=== PATIENT | female | born 1945 | race Hispanic/Latino ===

== ENCOUNTER → 2019-09-25 | Outpatient (CLI) | payer OTHER | END | disposition home or self-care (01) | LOC: RAH 13:11 | PROVIDERS: ATTEND Family Medicine | DX: Z12.31 Encounter for screening mammogram for malignant neoplasm of breast (principal) | CPT/HCPCS: 77067 ==

== ENCOUNTER → 2021-05-23 | Outpatient (CLI) | payer OTHER | END | disposition home or self-care (01) | LOC: SHCH 13:37 | PROVIDERS: ATTEND Internal Medicine Cardiovascular Disease | DX: I11.9 Hypertensive heart disease without heart failure (principal); E11.9 Type 2 diabetes mellitus without complications | CPT/HCPCS: 93306 ==

== ENCOUNTER → 2021-05-24 | Outpatient (CLI) | payer OTHER ==
[~2021-05-24] MED LIST: REGADENOSON 0.4 MG/5 ML PF SYG IVP SCH
== END | disposition home or self-care (01) ==
LOC: SHCH 07:55
PROVIDERS: ATTEND Internal Medicine Cardiovascular Disease
DX: R06.02 Shortness of breath (principal); R07.9 Chest pain, unspecified
CPT/HCPCS: 78452; 93017; 96374; A9500 ×2; J2785

== ENCOUNTER → 2022-08-17 | Outpatient (CLI) | payer OTHER | END | disposition home or self-care (01) | LOC: RAH 12:41 | PROVIDERS: ATTEND Internal Medicine Cardiovascular Disease | DX: Z13.6 Encounter for screening for cardiovascular disorders (principal); I51.5 Myocardial degeneration | CPT/HCPCS: 75571 ==

== ENCOUNTER 2023-02-05 05:03 | Observation (INO) | payer OTHER ==
[2023-01-31 12:20] LABS: BASOPHILS # (AUTO) 0.03 K/uL (0.00-0.20); BASOPHILS % (AUTO) 0.5 % (0.0-5.0); EOSINOPHILS # (AUTO) 0.09 K/uL (0.00-0.70); EOSINOPHILS % (AUTO) 1.4 % (0.0-8.0); HEMATOCRIT 38.9 % (36-48); IMMATURE GRANULOCYTE ABSOLUTE 0.02 K/uL (0-1); LYMPHOCYTES # (AUTO) 1.4 K/uL (1.0-4.8); LYMPHOCYTES % (AUTO) 21.2 % (21.0-51.0); MEAN CORPUSCULAR HEMOGLOBIN 30.5 pg (27.0-33.0); MEAN CORPUSCULAR HGB CONC 32.6 g/dL (32.0-36.0); MEAN CORPUSCULAR VOLUME 93.5 fL (79-99); MONOCYTES # (AUTO) 0.5 K/uL (0.1-1.0); MONOCYTES % (AUTO) 7.1 % (3.0-13.0); NEUTROPHILS # (AUTO) 4.5 K/uL (1.8-7.7); NEUTROPHILS % (AUTO) 69.5 % (40.0-77.0); PLATELET COUNT (AUTO) 210 K/uL (130-400); RED BLOOD CELL COUNT(AUTO) 4.16 MIL/uL (4.00-5.50); RED CELL DISTRIBUTION WIDTH 13.9 % (11.0-15.5); WHITE BLOOD COUNT (AUTO) 6.5 K/uL (4.8-10.8)
[2023-01-31 12:31] LABS: INR 0.97 (0.85-1.15); PROTHROMBIN TIME 11.3 SEC (9.6-11.6)
[2023-01-31 12:32] LABS: PARTIAL THROMBOPLASTIN TIME 31.4 SEC (26.3-35.5)
[2023-01-31 12:38] LABS: CREATININE 0.9 mg/dL (0.5-1.5); POTASSIUM 3.8 mmol/L (3.5-5.1)
[2023-01-31 13:45] VITALS: BP 171/90; PULSE 86; RESP 16
[~2023-02-05] VITALS: Ht 154.9 cm; Wt 84.1 kg
[2023-02-05] VITALS (26 sets, daily range): BP systolic 106–160; BP diastolic 53–99; PULSE 56–121; RESP 11–18; O2SAT 96
[~2023-02-05 05:03] MED LIST changes: +GLIM2TAB30 PO; +LATA2.5D14 OU; +LOSA50TA64 PO; +METF-444 PO; +METO-391 PO; -REGADENOSON 0.4 MG/5 ML PF SYG IVP SCH; +ROSU5TAB12 PO
[2023-02-05] MEDS ORDERED: 0.9%NACL 1000ML 1,000 ML IV ONE (05:25)
[2023-02-05] MEDS: CEFAZOLIN SODIUM 2 GM VIAL ONE ×2 (05:49→07:21)
[2023-02-05] MEDS ORDERED: SUCCINYLCHOLINE 200MG/10ML SYR ONE (06:14)
[2023-02-05] MEDS ORDERED: LIDOCAINE PF 100MG/5ML (2%) SYRINGE 5ML ONE (06:14)
[2023-02-05] MEDS ORDERED: MIDAZOLAM HCL 1 MG/ML 2ML VIAL ONE ×2 (06:15→08:10)
[2023-02-05] MEDS ORDERED: PROPOFOL 10 MG/ML 20ML VIAL IV ONE (06:15)
[2023-02-05] MEDS ORDERED: GLYCOPYRROLATE 1 MG/5 ML SYRINGE ONE (06:15)
[2023-02-05] MEDS ORDERED: DEXAMETHASONE SOD PHOSPHATE 10MG/ML 1ML VIAL ONE (06:15)
[2023-02-05] MEDS ORDERED: ONDANSETRON 4MG INJ ONE (06:15)
[2023-02-05] MEDS ORDERED: NEOSTIGMINE 5MG/5ML SYR IV ONE (06:15)
[2023-02-05] MEDS ORDERED: ROCURONIUM 10MG/1ML SYR 10 MG/ML ML ONE (06:15)
[2023-02-05] MEDS ORDERED: FENTANYL CITRATE PF 50 MCG/1 ML 2ML VIAL ONE ×2 (06:16→07:36)
[2023-02-05] MEDS ORDERED: EPINEPHRINE PF 1MG (1:1,000) 1 MG/ML AMP ONE (06:16)
[2023-02-05] MEDS ORDERED: TRANEXAMIC ACID 1000MG/10ML ONE ×2 (06:29→06:57)
[2023-02-05] MEDS ORDERED: GENTAMICIN SULFATE 80 MG/2 ML VIAL ONE (06:30)
[2023-02-05] MEDS ORDERED: CEFAZOLIN SODIUM 1 GM VIAL ONE ×2 (06:30→20:57)
[2023-02-05] MEDS ORDERED: 0.9%NACL 100ML 48.45 ML, ROPIVACAINE 0.5% 5MG/ML 30ML 246.25 MG, KETOROLAC TROMETHAMINE... IV PRN ×5 (07:00)
[2023-02-05] MEDS ORDERED: KCL 20 MEQ ERTAB PO PRN (11:30)
[2023-02-05] MEDS ORDERED: MAGNESIUM 2GM PREMIX 50ML 50 ML IV PRN (11:30)
[2023-02-05] MEDS ORDERED: POTASSIUM CHLORIDE 20MEQ/100ML 100 ML IV PRN (11:30)
[2023-02-05] MEDS ORDERED: POTASSIUM CHLORIDE 10% ELIXIR 20 MEQ/15 ML UDCUP PO PRN (11:30)
[2023-02-05 11:37] LABS: HEMATOCRIT 34.7 % (36-48); MEAN CORPUSCULAR HEMOGLOBIN 30.6 pg (27.0-33.0); MEAN CORPUSCULAR HGB CONC 32.6 g/dL (32.0-36.0); RED BLOOD CELL COUNT(AUTO) 3.69 MIL/uL (4.00-5.50); RED CELL DISTRIBUTION WIDTH 13.9 % (11.0-15.5); WHITE BLOOD COUNT (AUTO) 5.1 K/uL (4.8-10.8)
[2023-02-05 12:00] LABS: ALBUMIN 3.3 g/dL (3.5-5.0); BILIRUBIN,TOTAL 0.3 mg/dL (0.2-1.0); CREATININE 0.8 mg/dL (0.5-1.5); MAGNESIUM 1.1 mg/dL (1.80-2.40); TOTAL PROTEIN, SERUM 6.7 g/dL (6.0-8.3)
[2023-02-05] MEDS ORDERED: DIPHENHYDRAMINE HCL 25 MG CAPSULE PO PRN (13:30)
[2023-02-05] MEDS ORDERED: ACETAMINOPHEN WITH CODEINE 1 TAB TAB PO PRN (13:30)
[2023-02-05] MEDS ORDERED: HYDROCODONE/ACETAMINOPHEN 5/325 MG TAB PO PRN (13:30)
[2023-02-05] MEDS ORDERED: DiphenhydrAMINE HCL 50 MG/ML VIAL IM PRN (13:30)
[2023-02-05] MEDS ORDERED: DIPHENOXYLATE HCL/ATROPINE 2.5/0.025 MG TAB PO PRN (13:30)
[2023-02-05] MEDS ORDERED: ACETAMINOPHEN 325 MG TAB PO PRN ×2 (13:30)
[2023-02-05] MEDS ORDERED: LACTULOSE 20 GM/30 ML UDCUP PO PRN (13:30)
[2023-02-05] MEDS ORDERED: ONDANSETRON 4MG INJ IVP PRN (13:30)
[2023-02-05] MEDS ORDERED: BENZOCAINE/MENTH/CETYLPYRD CL 1 EACH LOZENGE MM PRN (13:30)
[2023-02-05] MEDS: 0.9%NACL 1000ML 1,000 ML IV SCH ×2 (13:30→23:30)
[2023-02-05] MEDS ORDERED: MAG/ALUM/SIMETH 30 ML UDCUP PO PRN (13:30)
[2023-02-05] MEDS ORDERED: HYDROMORPHONE PCA 10 MG/50 ML 50 ML IV PRN (13:30)
[2023-02-05] MEDS: TRAMADOL HCL 50 MG TABLET PO PRN (15:47)
[2023-02-05] MEDS ORDERED: CEFAZOLIN SODIUM 2 GM VIAL IVPB SCH (16:00)
[2023-02-05] MEDS: CEFAZOLIN SODIUM 3 GM in DEXTROSE 5%-WATER 100 ML IVPB SCH ×2 (17:19→21:03)
[2023-02-05] MEDS: METOPROLOL SUCCINATE 50 MG TAB.SR.24H PO SCH (20:35)
[2023-02-05] MEDS: METFORMIN HCL 500 MG TABLET PO SCH (20:36)
[2023-02-05] MEDS: INSULIN HUMULIN R 100 UNIT/ML 3ML SQ SCH (20:49)
[2023-02-05] MEDS ORDERED: CEFAZOLIN SODIUM 2 GM VIAL ONE (20:57)
[2023-02-05] MEDS ORDERED: ATORVASTATIN 10 MG TABLET PO SCH (21:00)
[2023-02-05] MEDS ORDERED: LATANOPROST 2.5 ML DROPS OU SCH (21:00)
[2023-02-06 04:00] VITALS: BP 121/63; PULSE 97; RESP 18
[2023-02-06 05:22] LABS: HEMATOCRIT 30.2 % (36-48); MEAN CORPUSCULAR HEMOGLOBIN 30.8 pg (27.0-33.0); MEAN CORPUSCULAR HGB CONC 33.8 g/dL (32.0-36.0); MEAN CORPUSCULAR VOLUME 91.2 fL (79-99); RED BLOOD CELL COUNT(AUTO) 3.31 MIL/uL (4.00-5.50); RED CELL DISTRIBUTION WIDTH 13.9 % (11.0-15.5); WHITE BLOOD COUNT (AUTO) 9.6 K/uL (4.8-10.8)
[2023-02-06 05:32] LABS: CREATININE 0.9 mg/dL (0.5-1.5); POTASSIUM 3.6 mmol/L (3.5-5.1)
[2023-02-06] MEDS: INSULIN HUMULIN R 100 UNIT/ML 3ML SQ SCH ×3 (07:30→16:30)
[2023-02-06 08:03] VITALS: BP 118/71; PULSE 97; RESP 20
[2023-02-06] MEDS ORDERED: LOSARTAN 50 MG TABLET PO SCH (09:00)
[2023-02-06] MEDS ORDERED: GLIMEPIRIDE 2 MG TABLET PO SCH (09:00)
[2023-02-06] MEDS ORDERED: RIVAROXABAN 10 MG TABLET PO SCH (09:00)
[2023-02-06] MEDS: 0.9%NACL 1000ML 1,000 ML IV SCH (09:30)
[2023-02-06] MEDS: METFORMIN HCL 500 MG TABLET PO SCH (09:51)
[2023-02-06] MEDS: METOPROLOL SUCCINATE 50 MG TAB.SR.24H PO SCH (09:51)
[2023-02-06] MEDS: TRAMADOL HCL 50 MG TABLET PO PRN ×2 (10:02→16:06)
[2023-02-06 10:56] VITALS: BP 124/74; PULSE 96; RESP 16
[2023-02-06 11:20] VITALS: BP 124/74; PULSE 96; RESP 16
[2023-02-06] MEDS ORDERED: RIVA10TA PO (14:36)
[2023-02-06] MEDS ORDERED: LATANOPROST 2.5 ML DROPS OU SCH (21:00)
== END 2023-02-06 18:30 | disposition home health service (06) ==
LOC: DAH 05:03 → 4AH 05:04 → DAH 05:04
PROVIDERS: ADMIT Orthopaedic Surgery; ATTEND Orthopaedic Surgery
DX: M17.12 Unilateral primary osteoarthritis, left knee (principal); M25.562 Pain in left knee; I10 Essential (primary) hypertension; E11.9 Type 2 diabetes mellitus without complications; E66.9 Obesity, unspecified; E78.5 Hyperlipidemia, unspecified; Z68.35 Body mass index [BMI] 35.0-35.9, adult; Z96.652 Presence of left artificial knee joint; Z79.899 Other long term (current) drug therapy; Z98.890 Other specified postprocedural states
CPT/HCPCS: 80048 ×2; 85025; 85610; 85730; 36415 ×3; 87641; 27447; 96365; 96366 ×3; 96368; 83735; 80053; 85027 ×2; 82948 ×5; 97161; 97012; 97116 ×3; 97530 ×6; A6260; J1815; G0378 ×26; G0379; A4510; A4663; J7030 ×3; J7120; A4215 ×2; A4649 ×4; J3010 ×2; J0690 ×5; J3490 ×2; J1170; J0330; J1100; J0171 ×2; J2001; J1580; J2250 ×2; J7060; J2704; J2405; J1885; J2795; J0735; A6223; C1763 ×2; C1776; A5120; A4223; A4222; A4221; A6450; J2710

== ENCOUNTER → 2023-03-16 | Outpatient (CLI) | payer OTHER ==
[~2023-03-16] MED LIST changes: +RIVA10TA PO
[2023-03-16 12:46] LABS: CHOLESTEROL 134 mg/dL (<200); HDL CHOLESTEROL 68 mg/dL (35-85); LDL DIRECT 58 mg/dL (0-99); TRIGLYCERIDES 44 mg/dL (30-200)
== END | disposition home or self-care (01) ==
LOC: LAB 09:24
PROVIDERS: ATTEND Internal Medicine Cardiovascular Disease
DX: E78.2 Mixed hyperlipidemia (principal); I10 Essential (primary) hypertension; Z78.9 Other specified health status
CPT/HCPCS: 36415; 80061

== ENCOUNTER → 2023-07-10 | Outpatient (CLI) | payer OTHER | END | disposition home or self-care (01) | LOC: RAH 07:56 | PROVIDERS: ATTEND Family Medicine | DX: N28.1 Cyst of kidney, acquired (principal); K76.0 Fatty (change of) liver, not elsewhere classified; R11.2 Nausea with vomiting, unspecified; R10.11 Right upper quadrant pain; R10.13 Epigastric pain | CPT/HCPCS: 76700 ==

== ENCOUNTER → 2023-09-11 | Outpatient (CLI) | payer OTHER ==
[2023-09-11 12:22] LABS: ALBUMIN 3.9 g/dL (3.5-5.0); BILIRUBIN,TOTAL 0.6 mg/dL (0.2-1.0); CREATININE 0.8 mg/dL (0.5-1.0); TOTAL PROTEIN, SERUM 7.7 g/dL (6.0-8.3)
== END | disposition home or self-care (01) ==
LOC: LAB 08:10
PROVIDERS: ATTEND Internal Medicine Cardiovascular Disease
DX: E78.5 Hyperlipidemia, unspecified (principal)
CPT/HCPCS: 36415; 80053; 80061

== ENCOUNTER → 2023-11-13 | Outpatient (CLI) | payer OTHER ==
[~2023-11-13] MED LIST changes: +ALPH200C2 PO; +METF-446 PO; +MVI PO; +OMEP20CA12 PO; -ROSU5TAB12 PO; +ROSU5TAB43 PO; +calcium PO
== END | disposition home or self-care (01) ==
LOC: RAH 12:35
PROVIDERS: ATTEND Internal Medicine
DX: Z78.0 Asymptomatic menopausal state (principal)
CPT/HCPCS: 77080

== ENCOUNTER 2023-11-20 06:41 | Day surgery (SDC) | payer OTHER ==
[2023-11-15 10:47] VITALS: BP 147/72; PULSE 74; RESP 18
[2023-11-15 10:55] LABS: BASOPHILS # (AUTO) 0.03 K/uL (0.00-0.20); BASOPHILS % (AUTO) 0.5 % (0.0-5.0); EOSINOPHILS # (AUTO) 0.17 K/uL (0.00-0.70); EOSINOPHILS % (AUTO) 2.6 % (0.0-8.0); HEMATOCRIT 37.2 % (36-48); IMMATURE GRANULOCYTE ABSOLUTE 0.03 K/uL (0-1); LYMPHOCYTES # (AUTO) 1.1 K/uL (1.0-4.8); LYMPHOCYTES % (AUTO) 16.3 % (21.0-51.0); MEAN CORPUSCULAR HEMOGLOBIN 30.7 pg (27.0-33.0); MEAN CORPUSCULAR HGB CONC 32.8 g/dL (32.0-36.0); MEAN CORPUSCULAR VOLUME 93.7 fL (79-99); MONOCYTES # (AUTO) 0.5 K/uL (0.1-1.0); MONOCYTES % (AUTO) 8.1 % (3.0-13.0); NEUTROPHILS # (AUTO) 4.7 K/uL (1.8-7.7); PLATELET COUNT (AUTO) 214 K/uL (130-400); RED BLOOD CELL COUNT(AUTO) 3.97 MIL/uL (4.00-5.50); RED CELL DISTRIBUTION WIDTH 13.4 % (11.0-15.5); WHITE BLOOD COUNT (AUTO) 6.6 K/uL (4.8-10.8)
[2023-11-15 11:06] LABS: ALBUMIN 3.7 g/dL (3.5-5.0); BILIRUBIN,TOTAL 0.4 mg/dL (0.2-1.0); POTASSIUM 4.2 mmol/L (3.5-5.1); TOTAL PROTEIN, SERUM 7.6 g/dL (6.0-8.3)
[2023-11-15 11:19] LABS: INR 1.02 (0.85-1.15)
[2023-11-15 11:21] LABS: PARTIAL THROMBOPLASTIN TIME 29.3 SEC (26.3-35.5)
[2023-11-20] VITALS (16 sets, daily range): BP systolic 138–167; BP diastolic 63–90; PULSE 53–90; RESP 14–18
[~2023-11-20] VITALS: Ht 152.4 cm; Wt 90.9 kg
[~2023-11-20 06:41] MED LIST changes: -GLIM2TAB30 PO; -METF-444 PO; -RIVA10TA PO
[2023-11-20] MEDS ORDERED: IOHEXOL-350 50ML VIAL IV ONE (07:33)
[2023-11-20] MEDS: CEFAZOLIN SODIUM 2 GM VIAL ONE (07:41)
[2023-11-20] MEDS: 0.9%NACL 1000ML 1,000 ML IV ONE (07:41)
[2023-11-20] MEDS ORDERED: ROCURONIUM BROMIDE 10MG/1ML 5ML VL ONE (07:46)
[2023-11-20] MEDS ORDERED: LIDOCAINE PF 100MG/5ML (2%) SYRINGE 5ML ONE (07:46)
[2023-11-20] MEDS ORDERED: FENTANYL CITRATE PF 50 MCG/1 ML 2ML VIAL ONE (07:46)
[2023-11-20] MEDS ORDERED: PROPOFOL 10 MG/ML 20ML VIAL IV ONE (07:46)
[2023-11-20] MEDS ORDERED: FAMOTIDINE 20MG VIAL IV ONE (07:56)
[2023-11-20] MEDS ORDERED: ACETAMINOPHEN 1,000 MG/100 ML VIAL IV ONE (07:56)
[2023-11-20] MEDS ORDERED: ROPIVACAINE 0.5% 5MG/ML 30ML ONE (07:57)
[2023-11-20] MEDS ORDERED: BUPIVACAINE/PF 0.5% 30ML VIAL ONE (08:01)
[2023-11-20] MEDS: CEFAZOLIN SODIUM 2 GM VIAL IVPB ONE (08:33)
[2023-11-20] MEDS ORDERED: DEXAMETHASONE SOD PHOSPHATE 10MG/ML 1ML VIAL ONE (08:39)
[2023-11-20] MEDS ORDERED: ONDANSETRON 4MG INJ ONE (08:39)
[2023-11-20] MEDS ORDERED: NEOSTIGMINE METHYLSULFATE 1MG/ML IV ONE (08:45)
[2023-11-20] MEDS ORDERED: GLYCOPYRROLATE 0.2 MG/ML 5 ML VIAL ONE (08:45)
[2023-11-20] MEDS ORDERED: EPHEDRINE SULFATE 50 MG/ML AMPULE ONE (08:47)
[2023-11-20] MEDS ORDERED: GABA-529 PO (09:16)
[2023-11-20] MEDS ORDERED: TRAM50TA4 PO (09:16)
[2023-11-20] MEDS ORDERED: DOCU-116 PO (09:16)
[2023-11-20] MEDS ORDERED: METH-662 PO (09:16)
[2023-11-20] MEDS ORDERED: SUGAMMADEX SODIUM 200 MG/2 ML VIAL IV ONE (09:27)
== END 2023-11-20 11:05 | disposition home or self-care (01) ==
LOC: DAH 06:41
PROVIDERS: ATTEND Surgery
DX: K80.10 Calculus of gallbladder with chronic cholecystitis without obstruction (principal); K82.8 Other specified diseases of gallbladder; I10 Essential (primary) hypertension; E11.9 Type 2 diabetes mellitus without complications; E78.5 Hyperlipidemia, unspecified; M19.90 Unspecified osteoarthritis, unspecified site; Z90.49 Acquired absence of other specified parts of digestive tract; Z98.890 Other specified postprocedural states; Z79.01 Long term (current) use of anticoagulants; Z79.899 Other long term (current) drug therapy
CPT/HCPCS: 80061; 80053; 85025; 85610; 85730; 86850 ×2; 86900 ×2; 86901 ×2; 36415 ×2; 64488; 47563; 82948 ×2; 88304; 74300; A6260; A4600; A4663; J7030 ×2; A4215 ×2; C1758; J3490 ×4; J3010; J1100; J2001; J2704; J2405; J2710; J0665; J2795; Q9967; J0690 ×2; G0168; A4649 ×2; A4930; A4223; A4222; A4221

== ENCOUNTER 2023-11-24 13:21 | Emergency (ER) | payer OTHER ==
[~2023-11-24] VITALS: Ht 152.4 cm; Wt 88.5 kg
[~2023-11-24 13:21] MED LIST changes: +DOCU-116 PO; +GABA-529 PO; +METH-662 PO; +TRAM50TA4 PO
[2023-11-24 13:49] LABS: BASOPHILS # (AUTO) 0.02 K/uL (0.00-0.20); BASOPHILS % (AUTO) 0.3 % (0.0-5.0); EOSINOPHILS # (AUTO) 0.38 K/uL (0.00-0.70); HEMATOCRIT 36.1 % (36-48); IMMATURE GRANULOCYTE ABSOLUTE 0.03 K/uL (0-1); LYMPHOCYTES # (AUTO) 1.1 K/uL (1.0-4.8); LYMPHOCYTES % (AUTO) 14.2 % (21.0-51.0); MEAN CORPUSCULAR HEMOGLOBIN 30.8 pg (27.0-33.0); MEAN CORPUSCULAR HGB CONC 34.1 g/dL (32.0-36.0); MEAN CORPUSCULAR VOLUME 90.5 fL (79-99); MONOCYTES # (AUTO) 0.7 K/uL (0.1-1.0); MONOCYTES % (AUTO) 9.2 % (3.0-13.0); NEUTROPHILS # (AUTO) 5.4 K/uL (1.8-7.7); NEUTROPHILS % (AUTO) 70.9 % (40.0-77.0); PLATELET COUNT (AUTO) 244 K/uL (130-400); RED BLOOD CELL COUNT(AUTO) 3.99 MIL/uL (4.00-5.50); RED CELL DISTRIBUTION WIDTH 12.9 % (11.0-15.5); WHITE BLOOD COUNT (AUTO) 7.6 K/uL (4.8-10.8)
[2023-11-24] MEDS: 0.9% NACL 500ML IV.SOLN 500 ML IV ONE (13:55)
[2023-11-24 14:07] LABS: COVID19 (SARS ANTIGEN RAPID) PRESUMPTIVE NEGATIVE (NEGATIVE); INFLUENZA TYPE A Negative For Type A (NEGATIVE); INFLUENZA TYPE B Negative For Type B (NEGATIVE)
[2023-11-24 14:14] LABS: CREATININE 0.9 mg/dL (0.5-1.0); POTASSIUM 3.7 mmol/L (3.5-5.1)
[2023-11-24 14:19] LABS: ALBUMIN 3.2 g/dL (3.5-5.0); BILIRUBIN,TOTAL 0.6 mg/dL (0.2-1.0); TOTAL PROTEIN, SERUM 7.7 g/dL (6.0-8.3)
[2023-11-24] MEDS ORDERED: IOHEXOL 350 MG/ML 100ML INFUS..BTL IV ONE (14:45)
[2023-11-24 18:07] VITALS: BP 109/63; PULSE 91; RESP 17; O2SAT 98
== END 2023-11-24 18:13 | disposition home or self-care (01) ==
LOC: EDH 13:21
DX: R06.02 Shortness of breath (principal); E11.9 Type 2 diabetes mellitus without complications; E66.01 Morbid (severe) obesity due to excess calories; E78.00 Pure hypercholesterolemia, unspecified; I10 Essential (primary) hypertension; J98.11 Atelectasis; Z79.84 Long term (current) use of oral hypoglycemic drugs; Z20.822 Contact with and (suspected) exposure to COVID-19; Z79.899 Other long term (current) drug therapy; Z90.49 Acquired absence of other specified parts of digestive tract; Z90.710 Acquired absence of both cervix and uterus
CPT/HCPCS: 99291; 71270; 71045; 87426; 84484; 80053; 83690; 85025; 87804 ×2; 36415; 93005; J7040; Q9967

== ENCOUNTER 2023-12-07 17:18 | Observation (INO) | payer OTHER ==
[~2023-12-07] VITALS: Ht 152.4 cm; Wt 88.5 kg
[2023-12-07 18:47] LABS: BASOPHILS # (AUTO) 0.06 K/uL (0.00-0.20); BASOPHILS % (AUTO) 0.6 % (0.0-5.0); EOSINOPHILS # (AUTO) 0.18 K/uL (0.00-0.70); EOSINOPHILS % (AUTO) 1.8 % (0.0-8.0); HEMATOCRIT 38.1 % (36-48); IMMATURE GRANULOCYTE ABSOLUTE 0.05 K/uL (0-1); LYMPHOCYTES # (AUTO) 1.4 K/uL (1.0-4.8); LYMPHOCYTES % (AUTO) 14.4 % (21.0-51.0); MEAN CORPUSCULAR HEMOGLOBIN 30.8 pg (27.0-33.0); MEAN CORPUSCULAR HGB CONC 33.1 g/dL (32.0-36.0); MEAN CORPUSCULAR VOLUME 93.2 fL (79-99); MONOCYTES % (AUTO) 9.6 % (3.0-13.0); NEUTROPHILS # (AUTO) 7.3 K/uL (1.8-7.7); NEUTROPHILS % (AUTO) 73.1 % (40.0-77.0); PLATELET COUNT (AUTO) 395 K/uL (130-400); RED BLOOD CELL COUNT(AUTO) 4.09 MIL/uL (4.00-5.50); RED CELL DISTRIBUTION WIDTH 13.2 % (11.0-15.5); WHITE BLOOD COUNT (AUTO) 9.9 K/uL (4.8-10.8)
[2023-12-07 19:01] LABS: ALBUMIN 3.9 g/dL (3.5-5.0); BILIRUBIN,TOTAL 0.5 mg/dL (0.2-1.0); CREATININE 1.7 mg/dL (0.5-1.0); POTASSIUM 4.8 mmol/L (3.5-5.1); TOTAL PROTEIN, SERUM 8.5 g/dL (6.0-8.3)
[2023-12-07] MEDS: 0.9%NACL 1000ML 1,000 ML IV ONE ×2 (19:39→22:07)
[2023-12-07 21:40] LABS: ADD UA MICROSCOPIC YES; APPEARANCE,URINE CLOUDY (CLEAR); BILIRUBIN,URINE NEGATIVE (NEGATIVE); COLOR,URINE YELLOW (YELLOW); GLUCOSE, URINE (UA) NEGATIVE (NEGATIVE); KETONES,URINE NEGATIVE (NEGATIVE); LEUKOCYTE ESTERASE ,URINE 500 Leu/uL (NEGATIVE); NITRATE,URINE NEGATIVE (NEGATIVE); OCCULT BLOOD,URINE NEGATIVE (NEGATIVE); PH,URINE 5.5 (5.0-8.0); PROTEIN,URINE 30 mg/dL (NEGATIVE); UROBILINOGEN,URINE 0.2 mg/dL (0.2-1.0)
[2023-12-07 21:45] LABS: MUCUS,URINE RARE LPF (None Seen); NON-SQUAMOUS EPITHELIAL CELL 2 /HPF (0-2); SQUAMOUS EPITHELIAL CELL,UR MANY /HPF (0-2); WBC,URINE TNTC /HPF (0-1)
[2023-12-07] MEDS ORDERED: ALBUTEROL 0.083% 2.5 MG/3 ML INH IH PRN (22:30)
[2023-12-07] MEDS ORDERED: HYDROCODONE/ACETAMINOPHEN 5/325 MG TAB PO PRN (22:30)
[2023-12-07] MEDS ORDERED: LABETALOL 20MG SYG IV PRN (22:30)
[2023-12-07] MEDS ORDERED: ONDANSETRON 4MG INJ IVP PRN (22:30)
[2023-12-07] MEDS ORDERED: acetaMINOPHEN 325 MG TAB PO PRN (22:30)
[2023-12-07] MEDS ORDERED: hydrALAZine 20MG/ML VIAL IV PRN (22:30)
[2023-12-07] MEDS ORDERED: acetaMINOPHEN 650 MG SUPPOSITORY RC PRN (22:30)
[2023-12-07] MEDS: cefTRIAXone 1G VIAL IVPB SCH (22:58)
[2023-12-07] MEDS: LACTATED RINGERS 1000ML 1,000 ML IV SCH (23:02)
[2023-12-08 02:35] VITALS: BP 123/59; PULSE 69; RESP 20
[2023-12-08 06:24] LABS: BASOPHILS # (AUTO) 0.03 K/uL (0.00-0.20); BASOPHILS % (AUTO) 0.4 % (0.0-5.0); EOSINOPHILS # (AUTO) 0.21 K/uL (0.00-0.70); EOSINOPHILS % (AUTO) 2.9 % (0.0-8.0); HEMATOCRIT 30.9 % (36-48); IMMATURE GRANULOCYTE ABSOLUTE 0.03 K/uL (0-1); LYMPHOCYTES # (AUTO) 1.1 K/uL (1.0-4.8); LYMPHOCYTES % (AUTO) 15.3 % (21.0-51.0); MEAN CORPUSCULAR HEMOGLOBIN 31.1 pg (27.0-33.0); MEAN CORPUSCULAR HGB CONC 33.3 g/dL (32.0-36.0); MEAN CORPUSCULAR VOLUME 93.4 fL (79-99); MONOCYTES # (AUTO) 0.9 K/uL (0.1-1.0); MONOCYTES % (AUTO) 12.3 % (3.0-13.0); NEUTROPHILS % (AUTO) 68.7 % (40.0-77.0); PLATELET COUNT (AUTO) 271 K/uL (130-400); RED BLOOD CELL COUNT(AUTO) 3.31 MIL/uL (4.00-5.50); RED CELL DISTRIBUTION WIDTH 13.2 % (11.0-15.5); WHITE BLOOD COUNT (AUTO) 7.3 K/uL (4.8-10.8)
[2023-12-08 06:46] LABS: POTASSIUM 4.1 mmol/L (3.5-5.1)
[2023-12-08] MEDS: INSULIN HUMULIN R 100 UNIT/ML 3ML SQ SCH (06:53)
[2023-12-08 06:57] LABS: CREATININE 1.5 mg/dL (0.5-1.0); PHOSPHORUS 3.3 mg/dL (2.5-4.9)
[2023-12-08 08:00] VITALS: BP 118/65; PULSE 77; RESP 17
[2023-12-08] MEDS: MAGNESIUM 2GM PREMIX 50ML 50 ML IV PRN (10:35)
[2023-12-08 12:00] VITALS: BP 110/61; PULSE 70; RESP 18
[2023-12-08 16:00] VITALS: BP 132/76; PULSE 73; RESP 17
[2023-12-08 20:00] VITALS: BP 139/77; PULSE 83; RESP 17; O2SAT 99
[2023-12-09] VITALS: BP 133/78; PULSE 75; RESP 17
[2023-12-09 04:00] VITALS: BP 139/70; PULSE 76; RESP 17
[2023-12-09 05:28] LABS: HEMATOCRIT 30.9 % (36-48); MEAN CORPUSCULAR HEMOGLOBIN 31.2 pg (27.0-33.0); MEAN CORPUSCULAR HGB CONC 33.7 g/dL (32.0-36.0); MEAN CORPUSCULAR VOLUME 92.8 fL (79-99); RED BLOOD CELL COUNT(AUTO) 3.33 MIL/uL (4.00-5.50); RED CELL DISTRIBUTION WIDTH 13.1 % (11.0-15.5); WHITE BLOOD COUNT (AUTO) 4.9 K/uL (4.8-10.8)
[2023-12-09 05:51] LABS: ALBUMIN 2.8 g/dL (3.5-5.0); BILIRUBIN,TOTAL 0.3 mg/dL (0.2-1.0); CREATININE 0.9 mg/dL (0.5-1.0); MAGNESIUM 1.7 mg/dL (1.80-2.40); TOTAL PROTEIN, SERUM 6.5 g/dL (6.0-8.3)
[2023-12-09 08:00] VITALS: BP 128/79; PULSE 102; RESP 17; O2SAT 99
[2023-12-09 12:00] VITALS: BP 142/86; PULSE 92; RESP 17
[2023-12-09 16:00] VITALS: BP 136/75; PULSE 73; RESP 18
== END 2023-12-09 18:30 | disposition home or self-care (01) ==
LOC: EDH 17:18 → EDHIP 22:26 → 4CH 12-08 02:35
PROVIDERS: ADMIT Internal Medicine Critical Care Medicine; ATTEND Internal Medicine Critical Care Medicine
DX: N39.0 Urinary tract infection, site not specified (principal); R19.7 Diarrhea, unspecified; I10 Essential (primary) hypertension; E86.0 Dehydration; E11.9 Type 2 diabetes mellitus without complications; E78.00 Pure hypercholesterolemia, unspecified; N17.9 Acute kidney failure, unspecified; R53.1 Weakness; E66.9 Obesity, unspecified; Z68.36 Body mass index [BMI] 36.0-36.9, adult; Z90.49 Acquired absence of other specified parts of digestive tract; Z90.710 Acquired absence of both cervix and uterus; Z98.890 Other specified postprocedural states; Z79.899 Other long term (current) drug therapy
CPT/HCPCS: 96376; 96361 ×3; 99284; 80053 ×2; 83690; 85025 ×2; 87086; 81001; 36415 ×3; 94664; 96365; 96366 ×2; 96367; 83735 ×3; 84100; 80048; 82948 ×6; 84145 ×2; 85027; G0378 ×44; J7030 ×2; J0696 ×2; J3475 ×3

== ENCOUNTER → 2024-06-30 | Outpatient (CLI) | payer OTHER ==
[~2024-06-30] MED LIST changes: -DOCU-116 PO; -GABA-529 PO; -ROSU5TAB43 PO; +ROSU5TAB51 PO; -TRAM50TA4 PO
[2024-06-30 12:53] LABS: ALBUMIN 3.9 g/dL (3.5-5.0); BILIRUBIN,TOTAL 0.5 mg/dL (0.2-1.0); CREATININE 0.7 mg/dL (0.5-1.0); TOTAL PROTEIN, SERUM 7.8 g/dL (6.0-8.3)
== END | disposition home or self-care (01) ==
LOC: LAB 09:07
PROVIDERS: ATTEND Internal Medicine Cardiovascular Disease
DX: I12.9 Hypertensive chronic kidney disease with stage 1 through stage 4 chronic kidney disease, or unspecified chronic kidney disease (principal); E11.40 Type 2 diabetes mellitus with diabetic neuropathy, unspecified; N18.30 Chronic kidney disease, stage 3 unspecified
CPT/HCPCS: 36415; 80053; 80061